=== PATIENT | male | born 1955 | race Caucasian/White ===

== ENCOUNTER → 2021-09-02 | Outpatient (CLI) | payer MEDICARE, OTHER ==
[~2021-09-02] MED LIST: ALPR0.5T PO; ASCO100T4 PO; ASPI81TA50 PO; ATOR10TA60 PO; LISI20TA18 PO; METO25TA2 PO; MULT-245 PO; REGADENOSON 0.4 MG/5 ML DISP.SYRIN. IV ONE; ZOLP10TA4 PO; [UNRECOGNIZED DRUG - OTHER]; [UNRECOGNIZED DRUG - OTHER]
--- NOTE | 2021-09-02 16:22 | RAD ---
MR#: [id number] Date of Study: 09/02/2021 Ordering Physician: KINJAL FROST Referring Physician: LOGAN KELLER Tech: RT Cherie Pierce) (N) APPROVED REPORT Test Type: Pharmacological Stress Nurse/Tech: ROMAN Gnan Test Indications: dyspnea Cardiac History: stents x2 2004, HTN, smoker Medications: See Electronic Medical Record Medical History: See Electronic Medical Record Resting ECG: SR Resting Heart Rate: 67 bpm Resting Blood Pressure: 134/69mmHg Pretest Chest Pain: None Nurse/Tech Notes Consent: The procedure was explained to the patient in lay terms. Informed consent was witnessed. Yoni eout was entered into [employer]. History and Stress Test performed by RT Ting GibsonR) (N) Pharm. Details Pharmacologic stress testing was performed using 0.4mg per 5ml of regadenoson given intravenously ove r 7-10 seconds. Stress Symptoms No chest pain or symptoms. POST EXERCISE Reason for Termination: Infusion complete Max HR: 130 bpm Max Blood Pressure: 126/60mmHg Blood Pressure response to exercise: Normal blood pressure response during stress. Heart Rate response to exercise: normal response Chest Pain: No. Arrhythmia: No. ST Change: No. INTERPRETATION Stress EKG Conclusion: Baseline EKG showed sinus rhythm. Patient developed left bundle branch block during adenosine infusion. No arrhythmias noted. Imaging Protocol IMAGE PROTOCOL: Rest Tc-99m/stress Tc-99m 1 day Rest: Stress: Viability: Radiopharm.Tc99m [id number] Sestamibi Dose10.5mCi 33mCi Duration 13min. 13min. Img Date 09/02/2021 09/02/2021 Inj-Img [id number]. 60min. Rest Admin Site:IV - Right HandAdministrator:RT Cherie Gibson)(N) Stress Admin Site: IV - Right HandAdministrator: RT Cherie Pierce)(N) STRESS DATA End Diast. Vol.114.0mlLVEDV index BSA56.0ml End Syst. Vol.49.0mlLVESV index BSA24.0ml Myocardial Eahu336.0gEject. Bwxawerv00.0% Stress Scores Regional WT1.00Summed WT17.00 Regional WM0.00Summed WM5.00 Study quality was fair. Left Ventricular size was Normal at Rest and Stress. Lung uptake was . Left Ventricular ejection fraction is 57%. The rest and stress images show normal perfusion, normal contraction and thickening. LV Perf. Quant 17 Seg. SSS1.00 17 Seg. SRS5.00 17 Seg. SDS0.00 Stress Defect Extent (% LAD)8.10Rest Defect Extent (% LAD)20.00Rev. Defect Extent (% LAD)0.00 Stress Defect Extent (% LCX) 0.00Rest Defect Extent (% LCX)0.00Rev. Defect Extent (% LCX)0.00 Stress Defect Extent (% RCA)0.00Rest Defect Extent (% RCA)0.00Rev. Defect Extent (% RCA)0.00 Stress Defect Extent (% DANA)4.10Rest Defect Extent (% DANA)8.50Rev. Defect Extent (% DANA)0.20 Conclusion 1. Regadenoson cardioisotope stress test did not show any evidence of ischemia or infarct. 2. Normal left ventricular systolic function with ejection fraction calculated at 57%. 3. Low risk for cardiac events. Signed by : Philip Ward, Electronically Approved : 09/02/2021 16:22:01
== END ==
LOC: NM 09:46
PROVIDERS: ATTEND Family Medicine
DX: R06.00 Dyspnea, unspecified (principal)
CPT/HCPCS: 78452; 93017; A9500; J2785